=== PATIENT | male | born 1960 | race Two or more races ===

== ENCOUNTER 2019-07-21 12:23 | Emergency (ER) | payer OTHER ==
[~2019-07-21] VITALS: Ht 170.2 cm; Wt 68.9 kg
[~2019-07-21 12:23] MED LIST: GLIPIZIDE10 MG PO; METFORMIN HCL500 M1 ORAL; NICOTINE PATCH1 EAC5 TD
[2019-07-21 12:25] VITALS: BP 136/84
--- NOTE | 2019-07-21 12:25 | NUR ---
ED Nurse Note: Patient ANTONIO from home d/t fall in his bathroom. Per patient, he was getting something from his bathroom and passed out. His friend called 911, EMS found him in his tub, awake, but he feels generalized weakness. Patient has left shoulder brace d/t previous left clavicle fracture. Patient denies hitting his head or hurting himself. Patient AxO x 4, no s/s of acute distress. Patient on the information systems security developer, bed in lowest position. 20 g IV started in right AC. Blood and urine sent to lab.
--- NOTE | 2019-07-21 12:38 | Emergency Room Report ---
History of Present Illness General Chief Complaint: Multiple Trauma/Fall Source: Patient, EMS Present Illness HPI Patient is a 58-year-old male who presents after recent fall. Patient had been found in a bathtub after falling at home. He reports having prior history of diabetes as well as cirrhosis and liver cancer. Denies any alcohol intake. Reports have increased left-sided shoulder pain as well as generalized body aches. Reports feeling weak all over. Denies any vomiting or hematemesis. Shoulder fracture occurred approximately 2 days ago. Allergies: Coded Allergies: No Known Allergies (Unverified , 03/30/19) Patient History Past Medical History: see triage record Reviewed Nursing Documentation: PMH: Agreed; PSxH: Agreed Nursing Documentation-PMH Past Medical History: No History, Except For Hx Hypertension: Yes Hx Diabetes: Yes Hx Cancer: Yes Hx Gastrointestinal Problems: Yes Review of Systems All Other Systems: negative except mentioned in HPI Physical Exam Vital Signs Date Time Temp Pulse Resp B/P (MAP) Pulse Ox O2 Delivery O2 Flow Rate FiO2 07/21/19 12:16 100.2 132 18 136/84 (101) 99 Room Air Sp02 EP Interpretation: reviewed, normal General Appearance: no apparent distress, alert, GCS 15, Chronically Ill Head: atraumatic ENT: hearing grossly normal, normal voice, dry mucus membranes Neck: normal inspection, full range of motion, supple, no bony tend Respiratory: normal inspection, lungs clear, normal breath sounds, no respiratory distress, no retraction, no wheezing Cardiovascular #1: regular rate, rhythm, no edema Gastrointestinal: normal inspection, normal bowel sounds, non tender, soft, no guarding, no hernia Genitourinary: no CVA tenderness Musculoskeletal: normal inspection, back normal, swelling - left clavicle deformity Neurologic: alert, motor strength/tone normal, record maker III-XII nml as tested, oriented x3, responsive, speech normal, normal inspection Psychiatric: normal inspection, judgement/insight normal, mood/affect normal Skin: other - Multiple small bruises to the extremities. Medical Decision Making Diagnostic Impression: Primary Impression: Cirrhosis Additional Impressions: Thrombocytopenia Clavicle fracture Acute febrile illness Subdural hematoma Coagulopathy ER Course Presented after fall and possible syncopal episode. Differential diagnosis include was noted to sepsis, pneumonia, clavicle fracture, influenza among others. Because patient's recent fall CT imaging was ordered. EKG did show sinus tachycardia with a rate of 119. There were nonspecific changes noted. Patient given antipyretics as well as IV fluids. He was empirically given Rocephin . Patient's CT imaging did show some small subdural hematoma. Patient was noted to be thrombocytopenic as well as coagulopathic. He was loaded with IV Keppra. I will defer management of coagulopathy to [facility] due to time constraints Dr. Matute from [facility] trauma center service was contacted for higher level care transfer. Laboratory Tests Test 07/21/19 12:40 White Blood Count 11.5 K/UL (4.8-10.8) H Red Blood Count 3.21 M/UL (4.70-6.10) L Hemoglobin 11.7 G/DL (14.2-18.0) L Hematocrit 31.6 % (42.0-52.0) L Mean Corpuscular Volume 98 FL (80-99) Mean Corpuscular Hemoglobin 36.5 PG (27.0-31.0) H Mean Corpuscular Hemoglobin Concent 36.9 G/DL (32.0-36.0) H Red Cell Distribution Width 13.4 % (11.6-14.8) Platelet Count 56 K/UL (150-450) L Mean Platelet Volume 4.9 FL (6.5-10.1) L Neutrophils (%) (Auto) % (45.0-75.0) Lymphocytes (%) (Auto) % (20.0-45.0) Monocytes (%) (Auto) % (1.0-10.0) Eosinophils (%) (Auto) % (0.0-3.0) Basophils (%) (Auto) % (0.0-2.0) Neutrophils % (Manual) Pending Lymphocytes % (Manual) Pending Platelet Estimate Pending Platelet Morphology Pending Prothrombin Time 15.0 SEC (9.30-11.50) H Prothrombin Time INR 1.4 (0.9-1.1) H Activated Partial Thromboplast Time 28 SEC (23-33) Sodium Level 135 MMOL/L (136-145) L Potassium Level 3.9 MMOL/L (3.5-5.1) Chloride Level 102 MMOL/L (98-107) Carbon Dioxide Level 20 MMOL/L (21-32) L Anion Gap 13 mmol/L (5-15) Blood Urea Nitrogen 10 mg/dL (7-18) Creatinine 0.8 MG/DL (0.55-1.30) Estimate Glomerular Filtration Rate > 60 mL/min (>60) Glucose Level 92 MG/DL (74-106) Lactic Acid Level Pending Calcium Level 8.2 MG/DL (8.5-10.1) L Total Bilirubin Pending Aspartate Amino Transferase (AST) Pending Alanine Aminotransferase (ALT) Pending Alkaline Phosphatase Pending Total Creatine Kinase Pending Creatine Kinase MB Pending Troponin I 0.040 ng/mL (0.000-0.056) Total Protein Pending Albumin Pending Globulin Pending EKG Diagnostic Results Rate: tachycardiac - 119 Rhythm: NSR ST Segments: no acute changes Last Vital Signs Date Time Temp Pulse Resp B/P (MAP) Pulse Ox O2 Delivery O2 Flow Rate FiO2 07/21/19 12:16 100.2 132 18 136/84 (101) 99 Room Air Status: unchanged Disposition: XFER T-[facility] Condition: Serious Jerry Hastings MD Jul 21, 2019 12:38
[2019-07-21 13:14] LABS: HEMATOCRIT 31.6 % (42.0-52.0); HEMOGLOBIN 11.7 G/DL (14.2-18.0); MEAN CORPUSCULAR VOLUME 98 FL (80-99); PLATELET COUNT 56 K/UL (150-450); RED BLOOD COUNT 3.21 M/UL (4.70-6.10); RED CELL DISTRIBUTION WIDTH 13.4 % (11.6-14.8); WHITE BLOOD COUNT 11.5 K/UL (4.8-10.8)
[2019-07-21 13:19] LABS: INR 1.4 (0.9-1.1)
[2019-07-21 13:41] LABS: ANION GAP 13 mmol/L (5-15); BLOOD UREA NITROGEN 10 mg/dL (7-18); CALCIUM 8.2 MG/DL (8.5-10.1); CARBON DIOXIDE 20 MMOL/L (21-32); CHLORIDE 102 MMOL/L (98-107); CREATININE 0.8 MG/DL (0.55-1.30); POTASSIUM 3.9 MMOL/L (3.5-5.1); SODIUM 135 MMOL/L (136-145)
[2019-07-21 13:54] LABS: ALANINE AMINOTRANSFERASE 32 U/L (12-78); ALBUMIN 2.2 G/DL (3.4-5.0); ALBUMIN/GLOBULIN RATIO 0.4 (1.0-2.7); ALKALINE PHOSPHATASE 343 U/L (46-116); ASPARTATE AMINO TRANSFERASE 115 U/L (15-37); BILIRUBIN,TOTAL 3.4 MG/DL (0.2-1.0); CKMB 2.1 NG/ML (0.0-3.6); CREATINE KINASE 263 U/L (26-308)
[2019-07-21 13:55] LABS: BILIRUBIN,DIRECT 1.2 MG/DL (0.0-0.3)
[2019-07-21 14:00] VITALS: BP 122/76
[2019-07-21 14:00] LABS: APPEARANCE,URINE CLEAR; BILIRUBIN, URINE 1+ (NEGATIVE); COLOR,URINE BROWN; GLUCOSE, URINE (UA) NEGATIVE (NEGATIVE); KETONES,URINE 3+ (NEGATIVE); LEUKOCYTE ESTERASE ,URINE 1+ (NEGATIVE); NITRITE,URINE NEGATIVE (NEGATIVE); PH,URINE 7 (4.5-8.0); PROTEIN,URINE 1+ (NEGATIVE); UROBILINOGEN,URINE 12 MG/DL (0.0-1.0)
--- NOTE | 2019-07-21 14:12 | Diagnostic Imaging Report ---
Indication: Headache Technique: Contiguous 5 mm thick transaxial imaging of the head obtained in a Siemens Sensation [address] scanner. Soft tissue and bone windows generated. Automatic Exposure Control was utilized. Total Dose length Product (DLP): [address] Dose Index Volume (CTDIvol): 62.7 mGy Comparison: none Findings: There is a focus of the extracranial scalp swelling over the right side of the vertex of the skull. The underlying bone is abnormal in this location with the permeative appearance. Deep to the skull, there is an extra-axial collection having a thickness of 9 to 10 mm measuring approximately 4.5 x 0.9 x 4.5 cm. The extra-axial collection is associated with some calcifications as well. Further evaluation of this with gadolinium-enhanced MRI is recommended. There is no definite edema within the brain though the extra-axial collection does slightly compress a portion of the right frontal lobe. The ventricles remain normal. Basal cisterns are normal. There is no hydrocephalus. IMPRESSION: Approximately 5 x 0.9 x 4.5 cm extra-axial mass over the right vertex of the skull. Adjacent abnormal appearing calvarium and extracranial soft tissue swelling also noted. Findings are concerning for tumor such as metastatic neoplasm. Differential considerations include infection/osteomyelitis. Would consider the possibility of old trauma as well. If there are prior studies for comparison, this would be most helpful. Further evaluation with gadolinium-enhanced MRI is recommended as well as clinical correlation. [facility] has communicated the preliminary results to the Emergency Department. Their findings are largely concordant with this report. The CT scanner at [facility] is accredited by the [employer] and the scans are performed using dose optimization techniques as appropriate to a performed exam including Automatic Exposure control.
[2019-07-21] MEDS ORDERED: levETIRAcetam 1,000mg/NS100ml 100 ML IVPB ONE (14:15)
[2019-07-21] MEDS ORDERED: levETIRAcetam 500mg/NS100ml 100 ML IVPB ONE (14:15)
--- NOTE | 2019-07-21 14:30 | NUR ---
ED Nurse Note: Per Dr. Hastings, Keppra order changed from 1,000 mg to 500 mg. 1,000 mg bag stopped, 500 mg bag started, appropriate volume adjusted to equal 500 mg total Keppra infusion.
--- NOTE | 2019-07-21 15:08 | NUR ---
ED Nurse Note: Patient resting in bed, no s/s of acute distress. Patient AxO x 4, feels tired.
--- NOTE | 2019-07-21 15:45 | NUR ---
ED Nurse Note: Report given to Q RN at [facility] Neuro ICU.
[2019-07-21 16:00] VITALS: BP 104/65
--- NOTE | 2019-07-21 16:38 | NUR ---
ED Nurse Note: [facility] here to transport patient to [facility]. Patient AxO x 4, no s/s of acute distress.
[2019-07-21 16:40] VITALS: BP 104/65
--- NOTE | 2019-07-22 14:37 | Diagnostic Imaging Report ---
Indication: Dyspnea Comparison: None A single view chest radiograph was obtained. Findings: Mild pulmonary vascular congestion may be present. Heart is enlarged. Bones are osteopenic IMPRESSION: Query mild CHF
== END 2019-07-21 16:40 | disposition short-term general hospital (02) ==
LOC: EDBD 12:23 → EMR 12:50
DX: K74.60 Unspecified cirrhosis of liver (principal); D69.6 Thrombocytopenia, unspecified; S42.009A Fracture of unspecified part of unspecified clavicle, initial encounter for closed fracture; R50.9 Fever, unspecified; S06.5X9A Traumatic subdural hemorrhage with loss of consciousness of unspecified duration, initial encounter; D68.9 Coagulation defect, unspecified; I10 Essential (primary) hypertension; E11.9 Type 2 diabetes mellitus without complications; Z85.9 Personal history of malignant neoplasm, unspecified; W18.2XXA Fall in (into) shower or empty bathtub, initial encounter; Y93.E1 Activity, personal bathing and showering; Y92.012 Bathroom of single-family (private) house as the place of occurrence of the external cause
CPT/HCPCS: 36415; 70450; 71045; 80053; 81003; 82248; 82550; 82553; 83605; 84484; 85007; 85025; 85610; 85730; 86710; 86850; 86900; 86901; 87040; 93005; 96361; 96374; J1953; J7030; Z7502; 99284